=== PATIENT | male | born 1965 | race Caucasian/White ===

== ENCOUNTER 2019-04-13 08:34 | Emergency (ER) | payer BC ==
[~2019-04-13] VITALS: Ht 185.4 cm; Wt 108.9 kg
[2019-04-13 08:45] VITALS: BP 142/83
[2019-04-13] MEDS ORDERED: TETRACAINE 0.5% OPHTH SOLUTION 4ML BOTTLE. OU ONE (08:45)
[2019-04-13] MEDS ORDERED: FLUORESCEIN OPHTH TEST STRIP. OU ONE (08:45)
--- NOTE | 2019-04-13 08:56 | PHYS DOC ---
Adult General Chief Complaint Chief Complaint: FOREIGN BODY/EYES HPI HPI 53-year-old male presents to emergency Department complaints of left eye pain. Patient states he woke on Tuesday when he felt something in his eye. He states he's been working with metal and subsequently may have gotten foreign body at that time. He denies any blurry vision however his primary complaints of pain. Denies any fever, chest pain, shortness breath, nausea, vomiting. All other ROS negative unless documented in HPI Review of Systems Review of Systems See Above Current Medications Current Medications Current Medications Medications (Trade) Dose Ordered Sig/Jerson Start Time Stop Time Status Last Admin Dose Admin Fluorescein Sodium (Ful-Mi) 1 strip 1X ONCE 04/13/19 08:45 04/13/19 09:03 DC Tetracaine HCl (Tetracaine) 1 drop 1X ONCE 04/13/19 08:45 04/13/19 09:03 DC Allergies Allergies Allergies Coded Allergies Type Severity Reaction Last Updated Verified No Known Drug Allergies 04/13/19 No Physical Exam Physical Exam See Above Constitutional: Well developed, well nourished, no acute distress, non-toxic appearance. [] HENT: Normocephalic, atraumatic, bilateral external ears normal, oropharynx moist, no oral exudates, nose normal. [] Eyes: PERRLA, EOMI, conjunctiva normal, no discharge. Evidence of foreign body appreciated at about 1 o'clock[] Cardiovascular:Heart rate regular rhythm, no murmur [] Lungs & Thorax: Bilateral breath sounds clear to auscultation [] Skin: Warm, dry, no erythema, no rash. [] Back: No tenderness, no CVA tenderness. [] Extremities: No tenderness, no edema. [] Neurologic: Alert and oriented X 3, no focal deficits noted. [] Psychologic: Affect normal, judgement normal, mood normal. [] Current Patient Data Vital Signs Vital Signs Date Time Temp Pulse Resp B/P (MAP) Pulse Ox O2 Delivery O2 Flow Rate FiO2 04/13/19 08:45 98.3 83 18 142/83 (102) 98 Room Air 98.3 EKG EKG [] Radiology/Procedures Radiology/Procedures [] Course & Med Decision Making Course & Med Decision Making Pertinent Labs and Imaging studies reviewed. (See chart for details) []53-year-old male presents to emergency Department complaints of left eye pain. Patient states he woke on Tuesday when he felt something in his eye. He states he's been working with metal and subsequently may have gotten foreign body at that time. He denies any blurry vision however his primary complaints of pain. Denies any fever, chest pain, shortness breath, nausea, vomiting. Check visual acuity Tetracaine eye drop with floroscene eval - no evidence of sidel's sign appreciated on exam 0.5mm tanvir used to remove metal fragment Antibiotic drops along with toradol upon discharge Recommend follow up with eye doctor Tuesday. Dragon Disclaimer Dragon Disclaimer This electronic medical record was generated, in whole or in part, using a voice recognition dictation system. Departure Departure Impression: Primary Impression: Corneal abrasion Additional Impression: Foreign body in eye Disposition: HOME, SELF-CARE Condition: IMPROVED Referrals: GUILLERMO GARCIA MD (PCP) Patient Instructions: Eye - Corneal Abrasion, [id number], Eye - Corneal Foreign Body, Eye - Foreign Body, [id number] Additional Instructions: Recommend follow up with PCP 3 - 5 days Return to the ER with worsening symptoms, intractable pain, fever, altered mental status Tylenol/Motrin as needed for pain Take eye drops as directed Scripts Ketorolac Tromethamine (KETOROLAC TROMETHAMINE) 5 Ml Drops 1 DROP OS QID PRN for PAIN, #5 ML 0 Refills Prov: LESLIE LANE MD 04/13/19 Problem Qualifiers Primary Impression: Corneal abrasion Encounter type: initial encounter Laterality: left Qualified Codes: S05.02XA - Injury of conjunctiva and corneal abrasion without foreign body, left eye, initial encounter Additional Impression: Foreign body in eye Encounter type: initial encounter Laterality: left Qualified Codes: T15.92XA - Foreign body on external eye, part unspecified, left eye, initial encounter LESLIE LANE MD Apr 13, 2019 08:56
[2019-04-13] MEDS ORDERED: KETO5DRO24 OS (09:28)
== END 2019-04-13 09:45 | disposition home or self-care (01) ==
LOC: ER 08:34
DX: T15.02XA Foreign body in cornea, left eye, initial encounter (principal); X18.XXXA Contact with other hot metals, initial encounter; Y93.89 Activity, other specified; Y92.89 Other specified places as the place of occurrence of the external cause; Y99.0 Civilian activity done for income or pay
CPT/HCPCS: 65220; 99284

== ENCOUNTER 2020-08-15 15:10 | Emergency (ER) | payer BC ==
[~2020-08-15] VITALS: Ht 185.4 cm; Wt 109.0 kg
[~2020-08-15 15:10] MED LIST: KETO5DRO24 OS
[2020-08-15 15:51] VITALS: BP 135/72
[2020-08-15] MEDS ORDERED: DIPH,PERTUSS(ACELL),TET VAC/PF 0.5 ML SYRINGE. VAX IM ONE (16:30)
[2020-08-15] MEDS ORDERED: NEOMY/BACITR/POLYMYXIN OINT PACKET. TP ONE (16:30)
--- NOTE | 2020-08-15 16:32 | ED.ADGEN ---
Past Medical History Past Medical History: No Pertinent History Past Surgical History: No Surgical History Smoking Status: Never Smoker Alcohol Use: None Drug Use: None General Adult EDM: Chief Complaint: LACERATION/AVULSION HPI: HPI: Patient is a 55 year old male who presents to emergency department with co mplaints of a laceration to the top of his head. Patient states he accidentally brushed his head against a sharp saw blade. He reports this all was not running when he scratched his head against it. Patient reports that his last tetanus shot was greater than 5 years ago. He complains of pain to the top of his head, he denies any dizziness, headache, vision changes, numbness, tingling, or weakness. He currently rates his discomfort a 1 out of 10 on the pain scale and describes it as a burning sensation. He denies any alleviating factors. Review of Systems: Review of Systems: Complete ROS is negative unless otherwise noted in HPI. Current Medications: Current Medications Medications (Trade) Dose Ordered Sig/Jerson Start Time Stop Time Status Last Admin Dose Admin Diphtheria/ Tetanus/Acell Pertussis (ADACEL TDap SYRINGE) 0.5 ml ONCE ONCE 08/15/20 16:30 08/15/20 16:32 DC 08/15/20 16:46 0.5 ML Neomycin/ Polymyxin/ Bacitracin (Triple Antibiotic Ointment) 1 pkt 1X ONCE 08/15/20 16:30 08/15/20 16:32 DC 08/15/20 16:45 1 PKT Allergies: Allergies: Allergies Coded Allergies Type Severity Reaction Last Updated Verified No Known Drug Allergies 04/13/19 No Physical Exam: PE: See Above Constitutional: Well developed, well nourished, no acute distress, non-toxic appearance. [] HENT: Normocephalic, bilateral external ears normal, nose normal. [] Eyes: PERRLA, EOMI, conjunctiva normal, no discharge. [] Neck: Normal range of motion, no stridor. [] Cardiovascular:Heart rate regular rhythm Lungs & Thorax: Respirations even and unlabored, no retractions, no respiratory distress Skin: Warm, dry, no erythema, no rash;; superficial abrasions to crown of scalp with no active bleeding or visible foreign body, hematoma also noted to crown of scalp, [] Extremities: No cyanosis, ROM intact, no edema. [] Neurologic: Alert and oriented X 3, normal motor, normal sensory, no focal deficits noted. [] Psychologic: Affect normal, judgement normal, mood normal. [] Current Patient Data: Vital Signs: Vital Signs Date Time Temp Pulse Resp B/P (MAP) Pulse Ox O2 Delivery O2 Flow Rate FiO2 08/15/20 15:51 98.1 77 18 135/72 (93) 99 Room Air 98.1 EKG: EKG: [] Heart Score: C/O Chest Pain: No Risk Scores: Score 0 - 3: 2.5% MACE over next 6 weeks - Discharge Home Score 4 - 6: 20.3% MACE over next 6 weeks - Admit for Clinical Observation Score 7 - 10: 72.7% MACE over next 6 weeks - Early Invasive Strategies Radiology/Procedures: Radiology/Procedures: [] Course & Med Decision Making: Course & Med Decision Making Pertinent Labs and Imaging studies reviewed. (See chart for details) D5-year-old male presented emergency department for evaluation of a scalp laceration. Physical exam revealed a laceration that was not suturable, the site was cleansed by nursing staff with surgical scrub and water. Nonstick dressing and antibiotic ointment was applied by nurse as documented. Tdap was updated while in the department. Follow-up instructions given. Patient verbalized an understanding of home care, medications, follow-up, and return to ED instructions and was in agreement with the plan of care. [] Dragon Disclaimer: Dragon Disclaimer: This electronic medical record was generated, in whole or in part, using a voice recognition dictation system. Departure Departure Impression: Primary Impression: Need for Tdap vaccination Additional Impression: Scalp abrasion, non-infected Disposition: 01 DC HOME SELF CARE/HOMELESS Condition: STABLE Referrals: GUILLERMO GARCIA MD (PCP) Patient Instructions: Abrasion, [id number], VIS, Tetanus, Diphtheria (Td); Tetanus, Diphtheria, Pertussis (Tdap) - CDC Additional Instructions: Keep the area clean and dry. You may take Tylenol or ibuprofen as needed for pain. Keep the dressing that was placed today on for 24 hours then change the dressing twice a day and apply antibiotic ointment to the area. Follow-up with your primary care doctor for wound recheck in 1 to 2 days, return the to the ER if you develop signs of infection including: redness, warmth, drainage, or a fever. Problem Qualifiers JEFFERSON [employer]ITA [employer] Aug 15, 2020 16:32
== END 2020-08-15 17:04 | disposition home or self-care (01) ==
LOC: ER 15:10
DX: S00.01XA Abrasion of scalp, initial encounter (principal); W22.8XXA Striking against or struck by other objects, initial encounter; Y93.89 Activity, other specified; Y92.89 Other specified places as the place of occurrence of the external cause; Y99.8 Other external cause status
CPT/HCPCS: 90471; 90715; 99283

== ENCOUNTER 2021-02-22 08:23 | Emergency (ER) | payer BC ==
[~2021-02-22] VITALS: Ht 185.4 cm; Wt 101.0 kg
[2021-02-22 09:06] VITALS: BP 137/85
[2021-02-22] MEDS ORDERED: NEO/5DRO5 RIGHTEYE (09:17)
--- NOTE | 2021-02-22 09:17 | PHYS DOC ---
Past Medical History Past Medical History: No Pertinent History Past Surgical History: No Surgical History Smoking Status: Never Smoker Alcohol Use: None Drug Use: None General Adult EDM: Chief Complaint: EYE PROBLEMS HPI: HPI: Patient is a 55 year old male who presents with states he was cleaning in his basement knows all kinds of debris is filling up in the air and he got something in his right eye. He states his tetanus is up to date. He was not woodworking or welding. States his eye is very irritated and feels like something is in his eye. Denies headache, denies dizziness, blurred vision, photophobia, loss of sight, discharge from eye, fever. Rates his discomfort an 8 out of 10. Review of Systems: Review of Systems: Constitutional: Denies fever or chills. [] Eyes: Denies change in visual acuity. + Right eye pain [] HENT: Denies nasal congestion or sore throat. [] Respiratory: Denies cough or shortness of breath. [] Cardiovascular: Denies chest pain or edema. [] GI: Denies abdominal pain, nausea, vomiting, bloody stools or diarrhea. [] : Denies dysuria. [] Musculoskeletal: Denies back pain or joint pain. [] Integument: Denies rash. [] Neurologic: Denies headache, focal weakness or sensory changes. [] Endocrine: Denies polyuria or polydipsia. [] Lymphatic: Denies swollen glands. [] Psychiatric: Denies depression or anxiety. [] Heart Score: C/O Chest Pain: No Current Medications: Current Medications Medications (Trade) Dose Ordered Sig/[facility] Start Time Stop Time Status Last Admin Dose Admin Fluorescein Sodium (Ful-Mi) 1 strip 1X ONCE 02/22/21 09:15 02/22/21 09:16 Tetracaine HCl (Tetracaine) 1 drop 1X ONCE 02/22/21 09:15 02/22/21 09:16 Allergies: Allergies: Allergies Coded Allergies Type Severity Reaction Last Updated Verified No Known Drug Allergies 04/13/19 No Physical Exam: PE: Constitutional: Well developed, well nourished, no acute distress, non-toxic appearance. [] HENT: Normocephalic, atraumatic, bilateral external ears normal, oropharynx moist, no oral exudates, nose normal. [] Eyes: PERRLA, EOMI, conjunctiva pink, no discharge. Corneal abrasion seen on the outer cornea at 7 and 8 o'clock[] Neck: Normal range of motion, no tenderness, supple, no stridor. [] Cardiovascular:Heart rate regular rhythm, no murmur [] Lungs & Thorax: Bilateral breath sounds clear to auscultation [] Abdomen: Bowel sounds normal, soft, no tenderness, no masses, no pulsatile masses. [] Skin: Warm, dry, no erythema, no rash. [] Back: No tenderness, no CVA tenderness. [] Extremities: No tenderness, no cyanosis, no clubbing, ROM intact, no edema. [] Neurologic: Alert and oriented X 3, normal motor function, normal sensory function, no focal deficits noted. [] Psychologic: Affect normal, judgement normal, mood normal. [] Current Patient Data: Vital Signs: Vital Signs Date Time Temp Pulse Resp B/P (MAP) Pulse Ox O2 Delivery O2 Flow Rate FiO2 02/22/21 09:06 98.1 64 16 137/85 (102) 97 Room Air 98.1 EKG: EKG: [] Radiology/Procedures: Radiology/Procedures: [] Course & Med Decision Making: Course & Med Decision Making Pertinent Labs and Imaging studies reviewed. (See chart for details) See HPI. Alert and oriented x4. Ambulatory steady gait. Speaks in full clear sentences. Skin pink warm and dry. No swelling to the eye. No orbital cellulitis. No tearing or discharge from the eye. No light sensitivity. No headache and denies any current dizziness. Eye Exam Visual accuity: Right eye 20/20, left eye 20/20, both eyes 20/25 Eye exam: PERRL, Extraocular muscles intact. No signs of ruptured globe. Sclera clear. Red reflex present. Foreign body: No foreign bodies seen with examination or with lid flip exam. Flakito-pen: N/A Fluorescein test: 7-8 o'clock on cornea corneal abrasion. Anesthetic: Tetracaine [] Dragon Disclaimer: Dragon Disclaimer: This electronic medical record was generated, in whole or in part, using a voice recognition dictation system. Departure Departure Impression: Primary Impression: Corneal abrasion Qualified Codes: S05.01XA - Injury of conjunctiva and corneal abrasion without foreign body, right eye, initial encounter Disposition: 01 HOME / SELF CARE / HOMELESS Condition: STABLE Referrals: GUILLERMO GARCIA MD (PCP) Eden MCGARRY MD Patient Instructions: Eye - Corneal Abrasion Additional Instructions: Follow-up with your primary care or the eye doctor of your choosing. I have referred you to an eye doctor if you want to use them. Use antibiotic as prescribed to help your eye heal and to prevent infection. Take ibuprofen for eye pain. Scripts Nicholas/Polymyx B Sulf/Dexameth ([id number] EYE DROP) 5 Ml Drops.susp 1 DROP RIGHTEYE QID for 10 Days, #5 ML 0 Refills Prov: CECELIA CONNORS APRN 02/22/21 CECELIA CONNORS APRN Feb 22, 2021 09:17
[2021-02-22] MEDS: FLUORESCEIN OPHTH TEST STRIP. OD ONE (09:21)
[2021-02-22] MEDS: TETRACAINE 0.5% OPHTH SOLUTION 4ML BOTTLE. OD ONE (09:21)
== END 2021-02-22 09:24 | disposition home or self-care (01) ==
LOC: ER 08:23
DX: S05.01XA Injury of conjunctiva and corneal abrasion without foreign body, right eye, initial encounter (principal); X58.XXXA Exposure to other specified factors, initial encounter; Y93.89 Activity, other specified; Y92.89 Other specified places as the place of occurrence of the external cause; Y99.8 Other external cause status
CPT/HCPCS: 99283